=== PATIENT | female | born 1985 | race Caucasian/White ===

== ENCOUNTER 2020-05-19 21:08 | Emergency (ER) | payer MEDICAID ==
[~2020-05-19] VITALS: Ht 152.4 cm; Wt 4.5 kg
[~2020-05-19 21:08] MED LIST: CLIN150C8 PO; PRED50TA PO
[2020-05-19] MEDS ORDERED: LIDOcaine 1% W/epiNEPHrine 1:200,000 10ml vial IJ ONE ×2 (22:25→22:30)
[2020-05-19 23:17] VITALS: BP 135/87
== END 2020-05-19 23:18 | disposition home or self-care (01) ==
LOC: ER 21:09
DX: L02.31 Cutaneous abscess of buttock (principal); Z98.51 Tubal ligation status; Z79.2 Long term (current) use of antibiotics; Z79.899 Other long term (current) drug therapy
CPT/HCPCS: 10060; 99282

== ENCOUNTER 2021-02-06 08:09 | Emergency (ER) | payer MEDICAID ==
[~2021-02-06] VITALS: Ht 152.4 cm; Wt 72.7 kg
[2021-02-06 08:15] VITALS: BP 118/62
[2021-02-06] MEDS ORDERED: DOXY100C76 PO (09:15)
== END 2021-02-06 10:50 | disposition home or self-care (01) ==
LOC: ER 08:09
DX: L02.31 Cutaneous abscess of buttock (principal); Z98.51 Tubal ligation status; Z79.2 Long term (current) use of antibiotics; Z79.899 Other long term (current) drug therapy
CPT/HCPCS: 10060; 99283

== ENCOUNTER 2021-02-13 18:33 | Emergency (ER) | payer MEDICAID ==
[~2021-02-13] VITALS: Ht 152.4 cm; Wt 72.7 kg
[~2021-02-13 18:33] MED LIST changes: +DOXY100C76 PO
[2021-02-13 18:56] VITALS: BP 122/84
--- NOTE | 2021-02-13 19:06 | NUR ---
C-COLLAR PLACED IN TRIAGE
== END 2021-02-13 22:26 | disposition home or self-care (01) ==
LOC: ER 22:21
DX: S09.90XA Unspecified injury of head, initial encounter (principal); M54.50 Low back pain, unspecified; M54.2 Cervicalgia; M54.6 Pain in thoracic spine; R51.9 Headache, unspecified; F17.200 Nicotine dependence, unspecified, uncomplicated; Z98.51 Tubal ligation status; Z79.2 Long term (current) use of antibiotics; Z79.899 Other long term (current) drug therapy; V87.7XXA Person injured in collision between other specified motor vehicles (traffic), initial encounter; Y93.89 Activity, other specified; Y92.89 Other specified places as the place of occurrence of the external cause; Y99.8 Other external cause status
CPT/HCPCS: 72125; 99284

== ENCOUNTER 2021-11-21 16:21 | Emergency (ER) | payer MEDICAID ==
[~2021-11-21] VITALS: Ht 152.4 cm; Wt 78.0 kg
[~2021-11-21 16:21] MED LIST changes: -DOXY100C76 PO
[2021-11-21 17:11] VITALS: BP 132/96
[2021-11-21] MEDS ORDERED: CEPH-585 PO (18:13)
[2021-11-21] MEDS ORDERED: LIDOcaine 1% 30ml preserv. free vial IJ ONE (18:15)
== END 2021-11-21 19:04 | disposition home or self-care (01) ==
LOC: ER 16:22
DX: L05.91 Pilonidal cyst without abscess (principal); Z98.51 Tubal ligation status; Z79.2 Long term (current) use of antibiotics; Z79.899 Other long term (current) drug therapy
CPT/HCPCS: 10060; 10080; 11200; 99283; 99284

== ENCOUNTER 2024-01-06 16:41 | Emergency (ER) | payer MEDICAID, OTHER ==
[~2024-01-06] VITALS: Ht 152.4 cm; Wt 61.8 kg
[~2024-01-06 16:41] MED LIST changes: +CLIN-214 PO; -CLIN150C8 PO
[2024-01-06 16:54] VITALS: BP 123/67; PULSE 76; RESP 18; O2SAT 98
[2024-01-06] MEDS ORDERED: DOXY150T9 PO (18:32)
[2024-01-06] MEDS ORDERED: PRED20TA PO (18:32)
[2024-01-06 18:39] VITALS: TEMP 97.3
== END 2024-01-06 18:43 | disposition home or self-care (01) ==
LOC: ER 16:42
DX: L73.2 Hidradenitis suppurativa (principal); Z76.0 Encounter for issue of repeat prescription; Z98.51 Tubal ligation status; Z79.51 Long term (current) use of inhaled steroids
CPT/HCPCS: 99283